=== PATIENT | male | born 1940 | race African-American/Black ===

== ENCOUNTER 2019-03-12 11:04 | Inpatient (IN) | payer OTHER ==
[2019-03-12 11:47] LABS: Urine Blood NEGATIVE (NEG); Urine Glucose NEGATIVE (NEG); Urine Protein NEGATIVE (NEG); Urine Specific Gravity 1.015 (1.005-1.030); Urine pH 7.5 (5.0-7.0)
[2019-03-12] MEDS ORDERED: NA CHLORIDE 0.9% 3,000 ML ONE (11:50)
[2019-03-12] MEDS ORDERED: CEFEPIME/SWI 2gm 2 GM/20 ML SYR IV SCH (12:00)
[2019-03-12] MEDS ORDERED: VANCOMYCIN/NS 1 gm 1 GM/250 ML BAG IV SCH ×2 (12:00→18:30)
--- NOTE | 2019-03-12 12:04 | RAD REPORT ---
EXAM DESCRIPTION: RAD - Chest Single View - 03/12/2019 11:48 am CLINICAL HISTORY: Chest pain;Cough Chest pain. COMPARISON: CHEST PA AND LAT 2 VIEW dated 09/22/2011 FINDINGS: Portable technique limits examination quality. Moderate bilateral pulmonary opacities are present, greater on the right, likely representing pneumon ia or pulmonary edema. The heart is mildly enlarged in size. No displaced fractures.
[2019-03-12] MEDS ORDERED: CLINDAMYCIN 900MG/D5W 900 MG/50 ML IVPB IV ONE (12:17)
--- NOTE | 2019-03-12 12:40 | EDPHYS ---
Physician Documentation [facility] Name: Ambrosio Page Age: 78 yrs Sex: Male : 1940 Arrival Date: 03/12/2019 Time: 11:10 Bed 3 Private MD: ED Physician Minh Ford HPI: 03/12 11:43 This 78 yrs old Black Male presents to ER via EMS with complaints of ams, weakness and marycruz hypotension. 11:43 ams, hypotension. The patient presents with confusion, decreased responsiveness, marycruz trouble concentrating. Onset: The symptoms/episode began/occurred 2 day(s) ago. Possible causes: CVA or TIA, low blood sugar, sepsis. Associated signs and symptoms: Pertinent positives: diaphoresis. Current symptoms: In the emergency department the patient's symptoms are unchanged from the initial presentation, despite home interventions, despite EMS interventions. Severity of symptoms: At their worst the symptoms were moderate severe in the emergency department the symptoms are unchanged. It is unknown whether or not the patient has had similar symptoms in the past. Historical: - Allergies: 11:39 No Known Allergies; jl7 - Home Meds: 11:39 amlodipine oral [Active]; Aspirin Oral [Active]; carvedilol oral oral [Active]; jl7 - PMHx: 11:39 Dementia; Anemia; Hyperlipidemia; dysphagia; hypokalemia; Hypertension; jl7 - Immunization history:: Adult Immunizations up to date. - Family history:: not pertinent. - Social history:: Smoking status: Patient/guardian denies using tobacco. - Ebola Screening: : No symptoms or risks identified at this time. ROS: 11:43 Constitutional: Negative for fever, chills, and weight loss, Eyes: Negative for injury, marycruz pain, redness, and discharge, ENT: Negative for injury, pain, and discharge, Neck: Negative for injury, pain, and swelling, Cardiovascular: Negative for chest pain, palpitations, and edema, Abdomen/GI: Negative for abdominal pain, nausea, vomiting, diarrhea, and constipation, Back: Negative for injury and pain, : Negative for injury, bleeding, discharge, and swelling, MS/Extremity: Negative for injury and deformity, Psych: Negative for depression, anxiety, suicide ideation, homicidal ideation, and hallucinations, Allergy/Immunology: Negative for hives, rash, and allergies, Endocrine: Negative for neck swelling, polydipsia, polyuria, polyphagia, and marked weight changes, Hematologic/Lymphatic: Negative for swollen nodes, abnormal bleeding, and unusual bruising. 11:43 Respiratory: Positive for cough, shortness of breath. 11:43 MS/extremity: Positive for decreased range of motion. 11:43 Neuro: Positive for weakness. Exam: 11:43 Constitutional: This is a well developed, well nourished patient who is awake, alert, marycruz and in no acute distress. Head/Face: Normocephalic, atraumatic. Eyes: Pupils equal round and reactive to light, extra-ocular motions intact. Lids and lashes normal. Conjunctiva and sclera are non-icteric and not injected. Cornea within normal limits. Periorbital areas with no swelling, redness, or edema. ENT: Nares patent. No nasal discharge, no septal abnormalities noted. Tympanic membranes are normal and external auditory canals are clear. Oropharynx with no redness, swelling, or masses, exudates, or evidence of obstruction, uvula midline. Mucous membranes moist. Neck: Trachea midline, no thyromegaly or masses palpated, and no cervical lymphadenopathy. Supple, full range of motion without nuchal rigidity, or vertebral point tenderness. No Meningismus. Chest/axilla: Normal chest wall appearance and motion. Nontender with no deformity. No lesions are appreciated. Cardiovascular: Regular rate and rhythm with a normal S1 and S2. No gallops, murmurs, or rubs. Normal PMI, no JVD. No pulse deficits. Respiratory: Lungs have equal breath sounds bilaterally, clear to auscultation and percussion. No rales, rhonchi or wheezes noted. No increased work of breathing, no retractions or nasal flaring. Abdomen/GI: Soft, non-tender, with normal bowel sounds. No distension or tympany. No guarding or rebound. No evidence of tenderness throughout. Back: No spinal tenderness. No costovertebral tenderness. Full range of motion. Male : Normal genitalia with no discharge or lesions. Skin: Warm, dry with normal turgor. Normal color with no rashes, no lesions, and no evidence of cellulitis. Psych: Awake, alert, with orientation to person, place and time. Behavior, mood, and affect are within normal limits. 11:43 Neuro: Orientation: unable to test, Mentation: slow to respond, confused, Cranial nerves: unable to test, Cerebellar function: unable to test. Vital Signs: 11:39 BP 77 / 43; Pulse 64; Resp 28 S; Temp 86.5(C); Pulse Ox 82% on R/A; jl7 11:39 Pulse Ox 98% on Non-rebreather mask; jl7 11:41 Weight 90.72 kg (R); jl7 12:00 BP 85 / 68; Pulse 60; Resp 32 S; Temp 86.6(C); Pulse Ox 95% on Non-rebreather mask; jl7 12:30 BP 81 / 66; Pulse 58; Resp 33 S; Temp 86.8(C); Pulse Ox 97% on Non-rebreather mask; jl7 13:00 BP 63 / 51; Pulse 66; Resp 34 S; Temp 87(C); Pulse Ox 95% on Non-rebreather mask; jl7 13:30 BP 57 / 42; Pulse 60; Resp 32 S; Temp 87.5(C); Pulse Ox 96% on Non-rebreather mask; jl7 14:10 BP 70 / 49; Pulse 63; Resp 33 S; Temp 88.3(C); Pulse Ox 97% on Non-rebreather mask; jl7 14:30 BP 55 / 46; Pulse 59; Resp 34 S; Temp 88.6(C); Pulse Ox 97% on BiPAP; jl7 15:00 BP 58 / 37; Pulse 69; Resp 35 S; Temp 89(C); Pulse Ox 97% on BiPAP; jl7 15:30 BP 60 / 44; Pulse 64; Resp 36 S; Temp 89.1(C); Pulse Ox 98% on BiPAP; jl7 16:00 BP 54 / 42; Pulse 65; Resp 32 S; Temp 89.3(C); Pulse Ox 98% on BiPAP; jl7 16:30 BP 60 / 49; Pulse 59; Resp 33 S; Temp 89.6(C); Pulse Ox 97% on BiPAP; jl7 Procedures: 12:43 Central Line: the site was prepped with Betadine, in sterile fashion, a triple lumen marycruz catheter was inserted, in the right in 2 attempts. placement was verified, by blood return, the site was dressed with using sterile technique, the patient tolerated the procedure, well. MDM: 11:10 Patient medically screened. [facility] 11:48 Data reviewed: vital signs, nurses notes, lab test result(s), EKG, radiologic studies. [facility] 03/12 11:30 Order name: Basic Metabolic Panel; Complete Time: 13:09 [facility] 03/12 11:30 Order name: CBC with Diff; Complete Time: 14:10 [facility] 03/12 11:30 Order name: LFT's; Complete Time: 13:09 [facility] 03/12 11:30 Order name: Magnesium; Complete Time: 13:09 [facility] 03/12 11:30 Order name: NT PRO-BNP; Complete Time: 13:09 [facility] 03/12 11:30 Order name: PT-INR; Complete Time: 12:48 [facility] 03/12 11:30 Order name: Troponin (emerg Dept Use Only); Complete Time: 13:09 [facility] 03/12 11:30 Order name: Lipase; Complete Time: 13:09 [facility] 03/12 11:30 Order name: Urine Culture [facility] 03/12 11:30 Order name: Procalcitonin; Complete Time: 14:10 [facility] 03/12 11:30 Order name: Lactate; Complete Time: 13:09 [facility] 03/12 11:40 Order name: Urine Dipstick--Ancillary (enter results); Complete Time: 12:40 em1 03/12 12:27 Order name: Blood Culture Adult (2) 7 03/12 12:59 Order name: CBC Smear Scan; Complete Time: 14:10 EDMS 03/12 11:30 Order name: XRAY Chest (1 view); Complete Time: 12:40 [facility] 03/12 11:30 Order name: EKG; Complete Time: 11:34 [facility] 03/12 11:30 Order name: Cardiac monitoring; Complete Time: 11:39 [facility] 03/12 11:30 Order name: EKG - Nurse/Tech; Complete Time: 11:39 [facility] 03/12 11:30 Order name: IV Saline Lock; Complete Time: 12:39 [facility] 03/12 11:30 Order name: Labs collected and sent; Complete Time: 12:39 [facility] 03/12 11:30 Order name: O2 Per Protocol; Complete Time: 11:39 [facility] 03/12 11:30 Order name: O2 Sat Monitoring; Complete Time: 11:39 [facility] 03/12 12:27 Order name: CT Head Brain wo Cont; Complete Time: 14:10 [facility] 03/12 13:31 Order name: ABG [facility] 03/12 14:10 Order name: BIPAP [facility] 03/12 11:30 Order name: Urine Dipstick-Ancillary (obtain specimen); Complete Time: 11:38 [facility] 03/12 11:40 Order name: Central Line Kit; Complete Time: 12:27 [facility] Administered Medications: 11:40 Drug: vancoMYCIN 1 grams Route: IVPB; Infused Over: 2 hrs; Site: right femoral; jl7 13:40 Follow up: Response: No adverse reaction; IV Status: Completed infusion; IV Intake: jl7 250ml 11:45 Drug: Cefepime 2 grams {Note: administered slow IV push per pharmacy instructions.} jl7 Route: IVPB; Rate: 200 ml/hr; Infused Over: 30 mins; Site: right femoral; 11:48 Follow up: Response: No adverse reaction; IV Status: Completed infusion jl7 12:30 Drug: NS 0.9% (30 ml/kg) 30 ml/kg Route: IV; Rate: bolus; Site: right femoral; jl7 14:47 Follow up: IV Status: Completed infusion; IV Intake: 3000ml jl7 12:50 Drug: Clindamycin 900 mg Route: IVPB; Infused Over: 30 mins; Site: right femoral; jl7 13:20 Follow up: IV Status: Completed infusion; IV Intake: 50ml jl7 15:27 Drug: NS 0.9% 1000 ml Route: IV; Rate: 125 ml/hr; Site: right femoral; jl7 16:30 Follow up: IV Status: Infusion continued upon admission jl7 Disposition: 03/12/19 12:42 Hospitalization ordered by Reese Sherman for Inpatient Admission. Preliminary diagnosis are Altered mental status, unspecified, Sepsis, unspecified organism, Pneumonia, unspecified organism - aspiration, Hypotension, Hypoxemia, Hypothermia, Anemia, unspecified, Unspecified kidney failure. - Bed requested for Intensive Care Unit. - Status is Inpatient Admission. jl7 - Condition is Guarded. - Problem is new. - Symptoms have improved. UTI on Admission? No Signatures: Dispatcher [employer] EDMinh Pulido MD MD cha Martinez, Eric em1 Rashard Billingsley RN RN jl7 Corrections: (The following items were deleted from the chart) 12:51 12:42 Hospitalization Ordered by Reese Sherman MD for Inpatient Admission. Preliminary [facility] diagnosis is Altered mental status, unspecified; Sepsis, unspecified organism; Pneumonia, unspecified organism - aspiration; Hypotension; Hypoxemia. Bed requested for Telemetry/MedSurg (Inpatient). Status is Inpatient Admission. Condition is Guarded. Problem is new. Symptoms have improved. UTI on Admission? No. marycruz 13:14 12:51 03/12/2019 12:42 Hospitalization Ordered by Reese Sherman MD for Inpatient marycruz Admission. Preliminary diagnosis is Altered mental status, unspecified; Sepsis, unspecified organism; Pneumonia, unspecified organism - aspiration; Hypotension; Hypoxemia; Hypothermia. Bed requested for Telemetry/MedSurg (Inpatient). Status is Inpatient Admission. Condition is Guarded. Problem is new. Symptoms have improved. UTI on Admission? No. [facility] 13:14 13:14 03/12/2019 12:42 Hospitalization Ordered by Reese Sherman MD for Inpatient marycruz Admission. Preliminary diagnosis is Altered mental status, unspecified; Sepsis, unspecified organism; Pneumonia, unspecified organism - aspiration; Hypotension; Hypoxemia; Hypothermia; Anemia, unspecified; Unspecified kidney failure. Bed requested for Telemetry/MedSurg (Inpatient). Status is Inpatient Admission. Condition is Guarded. Problem is new. Symptoms have improved. UTI on Admission? No. [facility] 15:31 13:14 03/12/2019 12:42 Hospitalization Ordered by Reese Sherman MD for Inpatient em1 Admission. Preliminary diagnosis is Altered mental status, unspecified; Sepsis, unspecified organism; Pneumonia, unspecified organism - aspiration; Hypotension; Hypoxemia; Hypothermia; Anemia, unspecified; Unspecified kidney failure. Bed requested for Intensive Care Unit. Status is Inpatient Admission. Condition is Guarded. Problem is new. Symptoms have improved. UTI on Admission? No. [facility] 16:54 15:31 03/12/2019 12:42 Hospitalization Ordered by Reese Sherman MD for Inpatient jl7 Admission. Preliminary diagnosis is Altered mental status, unspecified; Sepsis, unspecified organism; Pneumonia, unspecified organism - aspiration; Hypotension; Hypoxemia; Hypothermia; Anemia, unspecified; Unspecified kidney failure. Bed requested for Intensive Care Unit. Status is Inpatient Admission. Condition is Guarded. Problem is new. Symptoms have improved. UTI on Admission? No. em1
--- NOTE | 2019-03-12 12:40 | ER ---
Nurse's Notes [facility] Name: Ambrosio Page Age: 78 yrs Sex: Male : 1940 Arrival Date: 03/12/2019 Time: 11:10 Bed 3 Private MD: Diagnosis: Altered mental status, unspecified;Sepsis, unspecified organism;Pneumonia, unspecified organism-aspiration;Hypotension;Hypoxemia;Hypothermia;Anemia, unspecified;Unspecified kidney failure Presentation: 03/12 11:31 Presenting complaint: EMS states: [facility] faculty reported pt was found to be jl7 weak and flaccid, O2 in low 80s, and hypotensive. Transition of care: patient was received from another setting of care (long-term care facility), [facility]. Onset of symptoms was March 12, 2019. Risk Assessment: Do you want to hurt yourself or someone else? Patient reports no desire to harm self or others. Care prior to arrival: None. 11:31 Method Of Arrival: EMS: [facility] 11:31 Acuity: AVEYR 2 jl7 11:45 Initial Sepsis Screen: Does the patient meet any 2 criteria? RR > 20 per min. Temp jl7 <36.0*C (96.8*F)) or > 38.3*C (100.9*F). Systolic BP < 90 mmHg. Mean Arterial Pressure (MAP) < 65. Altered Mental Status. Yes Does the patient have a suspected source of infection? Yes: No. Patient's initial sepsis screen is negative. If YES to both, name of provider notified: Minh Ford MD. Historical: - Allergies: 11:39 No Known Allergies; jl7 - Home Meds: 11:39 amlodipine oral [Active]; Aspirin Oral [Active]; carvedilol oral oral [Active]; jl7 - PMHx: 11:39 Dementia; Anemia; Hyperlipidemia; dysphagia; hypokalemia; Hypertension; jl7 - Immunization history:: Adult Immunizations up to date. - Family history:: not pertinent. - Social history:: Smoking status: Patient/guardian denies using tobacco. - Ebola Screening: : No symptoms or risks identified at this time. Screenin:30 Abuse screen: Unable to obtain. Nutritional screening: No deficits noted. Tuberculosis jl7 screening: No symptoms or risk factors identified. Fall Risk Fall in past 12 months (25 points). Secondary diagnosis (15 points) dementia, IV access (20 points). Ambulatory Aid- None/Bed Rest/Nurse Assist (0 pts). Gait- Weak (10 pts.). Mental Status- Overestimates/Forgets Limitations (15 pts.). Total Jarvis Fall Scale indicates High Risk Score (45 or more points). Fall prevention measures have been instituted. Side Rails Up X 2 Placed Close to Nursing Station Frequent Obs/Assessments Occuring Family Present and informed to notify staff if the need to leave the bedside As available patient and family educated on Fall Prevention Program and Strategies. Assessment: 11:30 General: Appears distressed, uncomfortable, Behavior is restless. Pain: Unable to use jl7 pain scale. FLACC scale score is 6 out of 10. Neuro: Level of Consciousness is awake. Cardiovascular: Heart tones present. Respiratory: Airway is patent Respiratory effort is labored, Respiratory pattern is symmetrical, tachypnea Breath sounds with crackles in right middle lobe, left lower lobe and right lower lobe Breath sounds are diminished bilaterally. GI: PEG tube in place, clamped. Site clean. Derm: Skin is intact, Skin is dry, Skin is pale, Skin temperature is cold. 13:40 Reassessment: Transported pt to CT. jl7 14:30 Reassessment: BiPap placed on pt per Dr. Ford and Family agrees. jl7 15:30 Reassessment: Patient appears in no apparent distress at this time. No changes from jl7 previously documented assessment. Patient and/or family updated on plan of care and expected duration. Pain level reassessed. Vital Signs: 11:39 BP 77 / 43; Pulse 64; Resp 28 S; Temp 86.5(C); Pulse Ox 82% on R/A; jl7 11:39 Pulse Ox 98% on Non-rebreather mask; jl7 11:41 Weight 90.72 kg (R); jl7 12:00 BP 85 / 68; Pulse 60; Resp 32 S; Temp 86.6(C); Pulse Ox 95% on Non-rebreather mask; jl7 12:30 BP 81 / 66; Pulse 58; Resp 33 S; Temp 86.8(C); Pulse Ox 97% on Non-rebreather mask; jl7 13:00 BP 63 / 51; Pulse 66; Resp 34 S; Temp 87(C); Pulse Ox 95% on Non-rebreather mask; jl7 13:30 BP 57 / 42; Pulse 60; Resp 32 S; Temp 87.5(C); Pulse Ox 96% on Non-rebreather mask; jl7 14:10 BP 70 / 49; Pulse 63; Resp 33 S; Temp 88.3(C); Pulse Ox 97% on Non-rebreather mask; jl7 14:30 BP 55 / 46; Pulse 59; Resp 34 S; Temp 88.6(C); Pulse Ox 97% on BiPAP; jl7 15:00 BP 58 / 37; Pulse 69; Resp 35 S; Temp 89(C); Pulse Ox 97% on BiPAP; jl7 15:30 BP 60 / 44; Pulse 64; Resp 36 S; Temp 89.1(C); Pulse Ox 98% on BiPAP; jl7 16:00 BP 54 / 42; Pulse 65; Resp 32 S; Temp 89.3(C); Pulse Ox 98% on BiPAP; jl7 16:30 BP 60 / 49; Pulse 59; Resp 33 S; Temp 89.6(C); Pulse Ox 97% on BiPAP; jl7 ED Course: 11:10 Patient arrived in ED. marycruz 11:11 Minh Ford MD is Attending Physician. [facility] 11:30 Rashard Billingsley RN is Primary Nurse. jl7 11:30 Thermoregulation: warm blanket given to patient. Steffi blanket applied. jl7 11:30 Patient has correct armband on for positive identification. Placed in gown. Bed in low jl7 position. Call light in reach. Side rails up X2. test inspection engineer on. Pulse ox on. NIBP on. Warm blanket given. 11:36 Triage completed. jl7 11:38 EKG done, by ED staff, reviewed by Minh Ford MD. Urine collected: Padilla catheter jb1 specimen, cloudy, jyoti colored. Padilla cath inserted, using sterile technique, 16 Fr., by ut, balloon inflated, to gravity drainage, urine specimen collected. 11:41 Arm band placed on right wrist. EKG completed in triage. Results shown to . jl7 11:48 XRAY Chest (1 view) In Process Unspecified. EDMS 11:50 Maintain EMS IV. 20 g to right AC infiltrated, IV dc'd at this time, ERD notified. IV jl7 discontinued, intact, bleeding controlled, No redness/swelling at site. Pressure dressing applied. 12:30 Assisted provider with central line placement. Set up central line tray. Triple lumen jl7 line placed in right femoral. Line placed by Minh Ford MD Placement verified by blood return, Dressed with Tape, Tegaderm, Blood was collected. Patient tolerated well. Before procedure, did Practitioner(s) obtain informed consent? No. Patient \T\ family education about procedure, CLABSI prevention and S/S of infection? Yes. Time-out/Briefing performed prior to start of procedure? Yes. Was handwashing/sanitizing done immediately prior to procedure? Yes. Was patient positioned to in a way to prevent air embolism? Yes. Was procedure site sterilized? Yes, with chlorhexidine. Was the site allowed to dry? Yes. Was local anesthetic and/or sedation utilized? Yes. During the procedure, did the Practitioner(s) maintain a sterile field? Yes. Were unused ports clamped during insertion? Yes. Was a 2nd qualified MD obtained after 3 unsuccessful insertion attempts? No. Was blood aspirated from each lumen? Yes. After the procedure, did the Practitioner(s) clean the site and apply a sterile dressing? Yes. 12:30 Initial lab(s) drawn, by ED staff, sent to lab. [facility] 12:36 Reese Sherman MD is Hospitalizing Provider. [facility] 13:06 One-on-one care X 120 minutes. jl7 13:14 Radiology exam delayed due to waiting for pt to finish IV meds. Ok per Dr. oFrd. mw3 13:53 CT completed. Patient tolerated procedure well. Patient moved back from CT. mw3 13:53 CT Head Brain wo Cont In Process Unspecified. EDMS Administered Medications: 11:40 Drug: vancoMYCIN 1 grams Route: IVPB; Infused Over: 2 hrs; Site: right femoral; jl7 13:40 Follow up: Response: No adverse reaction; IV Status: Completed infusion; IV Intake: jl7 250ml 11:45 Drug: Cefepime 2 grams {Note: administered slow IV push per pharmacy instructions.} jl7 Route: IVPB; Rate: 200 ml/hr; Infused Over: 30 mins; Site: right femoral; 11:48 Follow up: Response: No adverse reaction; IV Status: Completed infusion jl7 12:30 Drug: NS 0.9% (30 ml/kg) 30 ml/kg Route: IV; Rate: bolus; Site: right femoral; jl7 14:47 Follow up: IV Status: Completed infusion; IV Intake: 3000ml jl7 12:50 Drug: Clindamycin 900 mg Route: IVPB; Infused Over: 30 mins; Site: right femoral; jl7 13:20 Follow up: IV Status: Completed infusion; IV Intake: 50ml jl7 15:27 Drug: NS 0.9% 1000 ml Route: IV; Rate: 125 ml/hr; Site: right femoral; jl7 16:30 Follow up: IV Status: Infusion continued upon admission jl7 Intake: 13:20 IV: 50ml; Total: 50ml. jl7 13:40 IV: 250ml; Total: 300ml. jl7 14:47 IV: 3000ml; Total: 3300ml. jl7 Outcome: 12:42 Decision to Hospitalize by Provider. marycruz 16:53 Admitted to ICU accompanied by nurse, accompanied by tech, via stretcher, room 3, with jl7 oxygen, on monitor, with chart, Report called to SHEFALI Wilder 16:53 Condition: unchanged 16:53 Discharge instructions given to patient, family, Instructed on the need for admit, Demonstrated understanding of instructions. 16:54 Patient left the ED. jl7 Signatures: Dispatcher [employer] Amish Rendon jb1 Minh Ford MD MD cha Leal, Jahala, RN RN [email or web address] Maylin Barlow mw3 Corrections: (The following items were deleted from the chart) 12:58 11:45 Response: No adverse reaction; IV Status: Completed infusion jl7 jl7
[2019-03-12 12:54] LABS: Absolute Lymphocytes (CBC) 0.3 K/uL (0.7-4.9); Basophils % 0.3 % (0-1.3); Hematocrit 30.8 % (39.6-49.0); Lymphocytes % 11.6 % (15.3-44.8); MPV 11.4 fL (7.6-11.3); RBC Red Blood Cell Count 3.26 M/uL (4.33-5.43)
[2019-03-12 13:04] LABS: ALT/SGPT 56 U/L (12-78); AST/SGOT 48 U/L (15-37); Albumin 2.1 g/dL (3.4-5.0); Alkaline Phosphatase 48 U/L (45-117); BUN Blood Urea Nitrogen 47 mg/dL (7-18); Bicarbonate 36 mmol/L (21-32); Bilirubin Direct < 0.1 mg/dL (0-0.2); Bilirubin Total 0.2 mg/dL (0.2-1.0); Glucose Level 100 mg/dL (74-106); Lipase 66 U/L (73-393); Magnesium 2.4 mg/dL (1.8-2.4); NT PRO-BNP 3105 pg/mL (<450); Potassium 4.4 mmol/L (3.5-5.1); Protein, Total 5.8 g/dL (6.4-8.2); Sodium Level 142 mmol/L (136-145); Troponin (Emerg Dept Use Only) 0.02 ng/mL (0.0-0.045)
[2019-03-12 13:33] LABS: Urine White Blood Cell Casts OK
[2019-03-12 13:35] LABS: Blood Morphology Comment NOTED (NOT SEEN); Platelet Estimate ADEQ
[2019-03-12 14:07] LABS: Arterial Blood Carboxyhemoglob 1.1 % (0-1.5); Blood Gas Oxyhemoglobin 86.4 % (94-97); Blood O2 Saturation 87.9 % (92-98.5)
--- NOTE | 2019-03-12 14:08 | RAD REPORT ---
EXAM DESCRIPTION: CT - Head Brain Wo Cont - 03/12/2019 1:53 pm CLINICAL HISTORY: DECLINING STATE Headache, drowsiness COMPARISON: <Comparisons> TECHNIQUE: All CT scans are performed using dose optimization technique as appropriate and may inclu de automated exposure control or mA/KV adjustment according to patient size. FINDINGS: No intracranial hemorrhage, hydrocephalus or extra-axial fluid collection.Advanced general ized brain atrophy is present with advanced periventricular and deep white matter chronic microvascul ar ischemic changes.No areas of brain edema or evidence of midline shift. The paranasal sinuses and mastoids are clear. The calvarium is intact. IMPRESSION: No acute intracranial abnormality.
[2019-03-12] MEDS ORDERED: NA CHLORIDE 0.9% 1,000 ML ONE (15:26)
[2019-03-12] MEDS ORDERED: NA CHLORIDE 0.9% 500 ML IV ONE (17:50)
[2019-03-12] MEDS ORDERED: CEFEPIME 1 GM/10 ML SYR IV SCH (17:50)
--- NOTE | 2019-03-12 17:57 | P.INFCA ---
Sepsis Focused Assessment - Focused Assessment Complete? Sepsis Focused Assessment Completed?: Yes - Sepsis Screen Result Septic Shock: Positive - Evaluation Current stage of sepsis: Septic shock - Vital Signs Reviewed: Yes Temperature: 90.8 F Heart rate: 73 Blood Pressure: 52/42 Respiratory Rate: 36 O2 Sat by Pulse Oximetry: 98 - Examination Date exam was performed: 03/12/19 Time exam was performed: 16:30 Heart: S1, S2 Lungs: Diminished air movement, Distant breath sounds, Accessory muscle use Peripheral pulses: 0+ Absent Peripheral pulse location: Pedal Capillary refill: >2 Seconds Skin examination: Not mottled
[2019-03-12] MEDS: NA CHLORIDE 0.9% 1,000 ML IV SCH (20:00)
[2019-03-12] MEDS: CEFEPIME/SWI 1gm 10 ML IV SCH (20:18)
[2019-03-12 20:43] VITALS: O2SAT 100
--- NOTE | 2019-03-12 22:16 | HP ---
Date of Admission: 03/12/2019 Primary Care Physician: Dr. Walton Chief Complaint: Found down, sepsis, pneumonia. Code Status: Do not resuscitate. History Of Present Illness: Patient is a 78-year-old male with past medical history of advanced Alzh eimer's dementia, hypertension, diabetes, who is a resident of a senior living facility, who was in [place] s usual state of health, last seen by the daughter previous weekend, who was found down this morning, appear that patient possibly had a stroke. Patient had been down for unknown period of time. Usual ly, patient requires assistance with all of his activities of daily living. He does not talk. He do es not walk. Patient is a DNR and family do not want any very aggressive measures. No intubation. No resuscitation with CPR or ACLS medications or vasopressor medications. They understand the risks and benefits. Patient was brought into the ER for further workup. Upon arrival, his vital signs juliette wed a blood pressure of 77/43. He was tachypneic. Temperature was 86.5. He was 82% on room air. C hest x-ray found to have pneumonia or possibly pulmonary edema. Head CT scan did not show any mass o r hemorrhage. There was no acute intracranial abnormality. Patient was placed on a Steffi Hugger. He was bolused 30 mL/kg for sepsis with hypertensive shock. Again, family does not want use of vasopre ssors. They understand the risks including peripheral necrosis and gangrene. Patient otherwise had decreased white blood cell count 2.8. His creatinine was elevated at 1.3. Patient was not acidotic, however, did have elevated pCO2 of 57. Patient was then switched over to BiPAP and referred for adm ission. He was also given broad-spectrum IV antibiotics. When seen in the ER, the patient was not r esponsive; however, did open his eyes and move all 4 of his extremities. Past Medical History: Hypertension, advanced Alzheimer's dementia, hyperlipidemia, anemia. Past Surgical History: Back surgery and amputation of right index fingertip. Allergies: NO KNOWN DRUG ALLERGIES. Medications: List reviewed. Social History: Patient is a resident of nursing facility with advanced dementia. Has good family s upport. Has a medical power of attorney at law. Patient does not ambulate or talk. Family History: Hypertension, hypothyroidism, and diabetes run in the family. Physical Examination: Vital Signs: Blood pressure 77/43, pulse 64, respirations 28, temperature 86.5, O2 82% on room air, improved to 98% on room breather mask. General: Asleep, but arousable, in moderate distress. Ill-appearing elderly male, obese. HEENT: Normocephalic, atraumatic. Pupils are fixed and somewhat dilated, not responsive to light. Oropharynx is clear. Poor dentition. Conjunctivae anicteric. Neck: Supple. Trachea midline. CV: S1, S2. Regular rate and rhythm. Peripheral pulses very weak and thready. Respiratory: Diminished breath sounds. No wheezing or stridor. Patient is tachypneic with use of a ccessory muscles. Gastrointestinal: Abdomen is soft, nondistended. Positive bowel sounds. No guarding or rigidity. Extremities: No clubbing or cyanosis. Patient has peripheral edema. Neuro: Cranial nerves unable to be properly assessed; however, there is no focal neurological defici t. Patient moves all 4 extremities. Did make some grunting sounds; however, does not follow any com mands. Opens eyes spontaneously. Skin: No rashes. Normal skin turgor. Cap refill is greater than 2 seconds. Psych: Deferred. Laboratory Data: UA is negative. Sodium 142, potassium 4.4, chloride 102, CO2 of 36, BUN 47, creati nine 1.31, glucose 100, lactate 1.8, calcium 9, magnesium 2.4. AST 48, ALT 56. Troponin 0.02. BNP 3105. Albumin 2.1. Lipase 66. Procalcitonin 2.63. INR 1. WBC 2.8, H and H 10.1 and 30.8, platele ts 102, neutrophils 82%. ABG; pH 7.39, pCO2 57.4, pO2 61, bicarb is 33. Imaging studies: Chest x-ray shows moderate bilateral pulmonary opacities present, greater on the ri ght, likely representing pneumonia or pulmonary edema. Heart enlarged. No displaced fracture. Head CT scan shows no acute intracranial abnormality. Patient has advanced generalized brain atrophy. N o midline shift. No edema. Assessment: A 78-year-old male with: 1.Septic shock, likely due to pneumonia with patient who is hypotensive with blood pressure in the 5 0s/30s, hypothermic with temperature of 86. White blood cell count is 2. Patient is tachypneic. Pr ocalcitonin is elevated we will start on broad spectrum IV antibiotics for pneumonia. Patient is rec eiving 30 mL/kg bolus for sepsis. Family does not wish to initiate pressor support. 2.Hypothermia. We will continue with Steffi Hugger. 3.Acute respiratory failure with hypoxia and hypercapnia. Patient now being switched to BiPAP, init carrington was on nonrebreather. 4.Acute metabolic encephalopathy, unclear etiology, may be due to possible stroke. Head CT scan was negative. Patient does have baseline dementia. 5.Bilateral pneumonia, right greater than left. We will continue with IV antibiotics. Obtain blood cultures and sputum culture. 6.Acute kidney injury. We will continue with IV fluids and monitor kidney function. Baseline kidne y function is normal. 7.Leukopenia, likely due to sepsis versus myelodysplastic syndrome or other. 8.Normocytic normochromic anemia. We will continue to monitor. 9.Thrombocytopenia. We will continue to monitor. Plan: We will admit patient to ICU despite being DNR as family does want resuscitation to a certain degree possible. Patient may also have possible ARDS. We will consult Pulmonology. Overall, kecia oakley has a very poor prognosis. Family understands that without significant resuscitation with pressor support and other resuscitative measures, the patient has very guarded prognosis and overall his cond ition is very poor and he may have a cardiac arrest at any time given his situation. Patient is hypo thermic, hypotensive, altered mental status with nonreactive pupils. Family understands his conditio n. They understand his prognosis is poor and that he may not survive this hospitalization. For now, we will continue with IV fluid resuscitation and IV antibiotics. Admit to ICU. Length of stay greater than 2 midnights. /MARIO Voice ID: [id number]
[2019-03-13] MEDS: NA CHLORIDE 0.9% 1,000 ML IV SCH ×2 (00:48→09:30)
[2019-03-13] MEDS: CEFEPIME/SWI 1gm 10 ML IV SCH ×2 (03:18→12:19)
[2019-03-13 05:53] VITALS: BMI 27.2
[2019-03-13 09:53] LABS: Absolute Lymphocytes (CBC) 0.6 K/uL (0.7-4.9); Basophils % 0.2 % (0-1.3); Hematocrit 25.4 % (39.6-49.0); Lymphocytes % 4.8 % (15.3-44.8); MPV 11.8 fL (7.6-11.3); RBC Red Blood Cell Count 2.66 M/uL (4.33-5.43)
[2019-03-13 10:11] LABS: Albumin 1.8 g/dL (3.4-5.0); Bilirubin Total 0.2 mg/dL (0.2-1.0); Potassium 5.3 mmol/L (3.5-5.1); Protein, Total 5.4 g/dL (6.4-8.2)
--- NOTE | 2019-03-13 10:24 | EKG ---
Test Date: 2019-03-12 Test Time: 11:26:42 Cytometry Technologist: RHETT MEASUREMENT RESULTS: Intervals: Rate: 63 NH: 172 QRSD: 152 QT: 552 QTc: 564 [place]: P: 33 NH: 172 QRS: -47 T: 117 INTERPRETIVE STATEMENTS: Normal sinus rhythm Left axis deviation Left bundle branch block Abnormal ECG Compared to ECG 10/19/2014 13:00:40 Left bundle-branch block now present Sinus bradycardia no longer present Left ventricular hypertrophy no longer present Electronically Signed On 03-13-19 10:23:47 CDT by Sabino Vila
[2019-03-13 10:31] LABS: Blood Morphology Comment NOT SEEN (NOT SEEN); Platelet Estimate DECR
--- NOTE | 2019-03-13 10:34 | P.CNS ---
Date of Consult: 03/13/19 Chief Complaint: Respiratory failure shock pneumonia History of Present Illness: Patient is 78 years of age at discuss with his granddaughter he has underlying dementia has become progressively worse enabled to take care of himself patient also has a PEG tube admitted with altered mental status is significant pneumonia he is in septic shock blood cultures are positive acute renal failure unresponsive on a BiPAP Allergies No Known Allergies Allergy (Unverified 09/22/11 19:11) Home Medications: Aspirin 81 mg PO DAILY 09/23/11 Amlodipine [Norvasc*] 5 mg PO DAILY 03/12/19 Bisacodyl 10 mg RC DAILY PRN 03/12/19 Carvedilol [Coreg*] 1 tab PO BID 03/12/19 - Past Medical/Surgical History Diabetic: No -: Dementia -: Anemia -: Hyperlipidemia -: Dysphagia -: PEG placement 12/2018 - Social History Smoking Status: Never smoker Alcohol use: No CD- Drugs: No Caffeine use: No Place of Residence: [facility] Review of Systems is unable to be obtained Physical Examination Temp Pulse Resp BP Pulse Ox 97.6 F 79 33 H 62/41 L 100 03/13/19 09:00 03/13/19 10:00 03/13/19 10:00 03/13/19 10:00 03/13/19 10:00 General: Unresponsive Respiratory: Clear to auscultation bilaterally, Crackles/rales (Some crackles on the right side) Cardiovascular: No edema, Regular rate/rhythm Laboratory Data (last 24 hrs) 03/12/19 12:30: PT 11.8, INR 1.00 03/12/19 12:30: WBC 2.8 L D, Hgb 10.1 L, Hct 30.8 L, Plt Count 102 L 03/12/19 12:30: Sodium 142, Potassium 4.4, BUN 47 H, Creatinine 1.31 H, Glucose 100, Magnesium 2.4, Total Bilirubin 0.2, AST 48 H, ALT 56, Alkaline Phosphatase 48, Lipase 66 L - Problems (1) Septic shock Current Visit: Yes Status: Acute Plan: Patient is 78 years of age with a history of progressive dementia as a PEG tube poor baseline functioning admitted with altered mental status pneumonia septic shock acute renal failure hypoxic hypercapnic chest x-ray shows extensive consolidation on the right side. I have discussed with her as power of assistant district attorney is granddaughter Ms Trujillo do not want any life-sustaining measures and they will come and visit with him and consider withdrawing all care and let and in comfort test what the patient's wishes were he did not want any life-sustaining of prolonging measures will withdraw all care including antibiotics and plan for comfort care only
[2019-03-13] MEDS ORDERED: MORPHINE 2 MG/ML SYR IV PRN (10:35)
[2019-03-13] MEDS ORDERED: LORazepam 2 MG/ML VIAL IV PRN (10:35)
--- NOTE | 2019-03-13 10:41 | PN ---
Date of Progress Note: 03/13/2019 Patient is seen and examined. Chart reviewed and case discussed with RN. No family at the bedside. The patient is still however his temperature is improved. Medications: List reviewed. Physical Examination: Vital Signs: Temperature 97.1, heart rate 86, blood pressure 67/55, respirations 22, O2 at 98% on Bi PAP at 65% FiO2. General: Asleep. Does grunt to sternal rub, largely nonresponsive. CV: S1, S2. Regular rate and rhythm. Peripheral pulses weak. Respiratory: Diminished breath sounds. No wheezing or stridor. The patient is tachypneic. Gastrointestinal: Abdomen is soft, nontender, nondistended. Positive bowel sounds. Extremities: . Patient does have peripheral edema. Neurological: Does respond to sternal rub. Does not follow commands, nonverbal. Laboratory Data: Pending. Cultures are also pending. Assessment And Plan: A 78-year-old male with: 1.Septic shock. Patient's pressure is still very low with MAP around 50. Family does not want pres sor support. We will continue with IV fluid resuscitation, likely secondary to pneumonia. 2.Hypothermia. Continue with Steffi Hugger. Temperature is now at 96. 3.Acute respiratory failure with hypoxia and hypercapnia. Continue with BiPAP. Pulmonology consult ed. 4.Acute metabolic encephalopathy, unclear etiology. Head CT scan is negative, may be due to hypoxic brain injury or other. 5.Bilateral pneumonia, right greater than left. Continue with IV antibiotics. Follow up on culture s. 6.Acute kidney injury. We will repeat BMP. 7.Leukopenia, likely due to sepsis versus myelodysplastic syndrome. We will continue to monitor CBC . 8.Normocytic normochromic anemia. Monitor H and H, transfuse as needed. 9.Thrombocytopenia. We will continue to monitor. No indication for transfusion at this time. Plan: We will step down from ICU. The patient is a DNR with limited directives from the family. Fo r resuscitation, we will meet with the family again regarding palliative care. Overall very poor prognosis. SA/MODL Voice ID: [id number] Report ID: [id number]
[2019-03-13 17:42] VITALS: BP 69/45; TEMP 96.6
[2019-03-13] MEDS ORDERED: VANCOMYCIN 1.75 GM in NA CHLORIDE 0.9% 500 ML IVPB SCH (18:00)
--- NOTE | 2019-03-15 08:36 | DS ---
Date of Discharge: 03/13/2019 Consultants: Dr. Hankins with pulmonology. Admitting Diagnoses: 1.Acute respiratory failure with hypoxia. 2.Septic shock. 3.Hypothermia, severe. 4.Acute metabolic encephalopathy. 5.Bilateral pneumonia, likely gram-negative for possible aspiration pneumonia. 6.Acute kidney injury. 7.Leukopenia. 8.Normocytic normochromic anemia. 9.Thrombocytopenia. 10.Severe protein-calorie malnutrition. 11.Hypertension. 12.Diabetes. 13.Alzheimer dementia. Hospital Course: Patient is a 78-year-old male, resident of the nursing facility with a very limited quality of life, who does not talk and does not ambulate, has a past medical history of Alzheimer de mentia, hypertension, diabetes. Patient was found down at the nursing facility for unknown period of time. He was brought into the ER, found to be hypothermic and hypotensive with a blood pressure of 70s systolic down to even 50s systolic. Patient is a DNR and family did not want any invasive measur ements such as CPR and mechanical ventilation or pressor support. Patient was placed on a Steffi Hugge r. He was also started on supplemental oxygen and eventually placed on BiPAP due to hypercapnia. Hi s head CT scan did not show any mass or hemorrhage. He had a fixed dilated pupils. The patient's ite blood cell count was low. He was in septic shock secondary to pneumonia on the x-ray. Patient w as started on broad-spectrum IV antibiotics as well. Patient was moved to the ICU. Patient was cont inued on IV fluid resuscitation. However, he became less responsive and his blood pressure did not h old well with IV fluids alone. On subsequent meeting with the family and medical power of circuit judge, they understood that his overall prognosis is very poor and his condition is deteriorating and that h e would likely suffer cardiopulmonary arrest. They did not wish him to be resuscitated and then deci ded to withdraw care. Patient was seen by alternative education teacher, Dr. Hankins. Patient was then taken off s upportive care including IV fluids and BiPAP and shortly thereafter. Time Spent: Total time spent was 45 minutes. /MARIO Voice ID: [id number] Report ID: [id number]
== END 2019-03-13 17:20 | disposition expired | DRG 871 ==
LOC: ER 11:04 → ERHOLD 13:51 → 3RD-ICU 16:18
PROVIDERS: ADMIT Family Medicine; ATTEND Family Medicine
PROC: 06HM33Z Insertion of Infusion Device into Right Femoral Vein, Percutaneous Approach (ICD-10-PCS; principal; 2019-03-12)
PROC: 5A09357 Assistance with Respiratory Ventilation, Less than 24 Consecutive Hours, Continuous Positive Airway Pressure (ICD-10-PCS; 2019-03-12)
DX: A41.9 Sepsis, unspecified organism (principal); R65.21 Severe sepsis with septic shock; J96.02 Acute respiratory failure with hypercapnia; J96.01 Acute respiratory failure with hypoxia; G93.41 Metabolic encephalopathy; E43 Unspecified severe protein-calorie malnutrition; J69.0 Pneumonitis due to inhalation of food and vomit; N17.9 Acute kidney failure, unspecified; R68.0 Hypothermia, not associated with low environmental temperature; D64.9 Anemia, unspecified; D69.6 Thrombocytopenia, unspecified; G30.9 Alzheimer's disease, unspecified; F02.80 Dementia in other diseases classified elsewhere, unspecified severity, without behavioral disturbance, psychotic disturbance, mood disturbance, and anxiety; I10 Essential (primary) hypertension; E11.9 Type 2 diabetes mellitus without complications; Z66 Do not resuscitate; E78.5 Hyperlipidemia, unspecified; Z68.27 Body mass index [BMI] 27.0-27.9, adult
CPT/HCPCS: 36415; 51702; 70450; 71045; 80048; 80053; 80076; 81003; 82805; 82962; 83605; 83690; 83735; 83880; 84145; 84484; 85025; 85610; 87040; 87077; 87086; 87088; 87186; 87205; 93005; 94660; 94760; 96361; 96365; 96367; 96375; 99285; J0692; J2270; J3370; J7030